=== PATIENT | male | born 1990 | race Caucasian/White ===

== ENCOUNTER 2018-05-13 07:48 | Emergency (ER) | payer OTHER ==
[~2018-05-13] VITALS: Ht 172.7 cm; Wt 86.2 kg
[~2018-05-13 07:48] MED LIST: 'PARAFON FORTE500 M1 PO; ACID CONTROLLER20 M1 PO; ADDERALL 10 MG10 MG PO; ADDERALL XR20 MG PO; AUGMENTIN 500500 MG PO; CLOTRIMAZOLE TR10 MG PO; GOOD SENSE IBU200 MG PO; MOTRIN800 MG PO; NAPROSYN500 MG PO; PAXIL10 MG/5 M1 PO; PREDNISONE10 MG PO; ZITHROMAX250 MG PO; Zofran4 MG PO
== END 2018-05-13 08:47 | disposition home or self-care (01) ==
LOC: ED 07:48
DX: T15.02XA Foreign body in cornea, left eye, initial encounter (principal); K21.9 Gastro-esophageal reflux disease without esophagitis; Z98.890 Other specified postprocedural states; Z79.899 Other long term (current) drug therapy; Z88.8 Allergy status to other drugs, medicaments and biological substances; X58.XXXA Exposure to other specified factors, initial encounter; Y93.89 Activity, other specified; Y92.89 Other specified places as the place of occurrence of the external cause; Y99.9 Unspecified external cause status

== ENCOUNTER 2020-05-29 01:09 | Emergency (ER) | payer BC ==
[~2020-05-29] VITALS: Ht 172.7 cm; Wt 90.7 kg
[2020-05-29 02:38] LABS: BASO # 0.1 10*3/uL (0.0-0.1); BASO % 0.5 % (0.0-1.0); EOS # 0.6 10*3/uL (0.0-0.4); EOS % 5.2 % (1.0-4.0); LYMPH # 1.1 10*3/uL (1.3-4.4); LYMPH % 9.1 % (27.0-41.0); MEAN CELL VOLUME 93.3 fl (80.0-94.0); MEAN CORPUSCULAR HGB 31.9 pg (27.0-31.0); MEAN CORPUSCULAR HGB CONC 34.2 g/dl (33.0-37.0); MEAN PLATELET VOLUME 9.8 fl (9.6-12.3); MONO # 0.5 10*3/uL (0.1-1.0); MONO % 4.5 % (3.0-9.0); NEUT # 9.5 10*3/uL (2.3-7.9); NEUT % 79.2 % (47.0-73.0); PLATELET COUNT AUTOMATED 135 10*3/uL (130-400); RED BLOOD COUNT 3.86 10*6/uL (4.50-5.90); RED CELL DISTRI WIDTH 12.6 % (0-14.5)
[2020-05-29 02:52] LABS: ALKALINE PHOSPHATASE 127 U/L (45-117); BUN 13 mg/dl (7-24); CHLORIDE 106 mmol/L (98-107); POTASSIUM 3.1 mmol/L (3.5-5.1); SGOT/AST 44 IU/L (3-35); SGPT/ALT 84 U/L (12-78); SODIUM 139 mmol/L (136-145); TOTAL PROTEIN 6.1 gm/dL (6.4-8.2)
[2020-05-29] MEDS ORDERED: PREDNISONE20 M1 PO (03:58)
== END 2020-05-29 04:41 | disposition home or self-care (01) ==
LOC: ED 01:09
PROVIDERS: Emergency Medicine
DX: M13.88 Other specified arthritis, other site (principal); Z79.899 Other long term (current) drug therapy

== ENCOUNTER 2021-12-05 01:43 | Emergency (ER) | payer BC ==
[~2021-12-05] VITALS: Ht 175.2 cm; Wt 90.7 kg
[~2021-12-05 01:43] MED LIST changes: +PREDNISONE20 M1 PO
== END 2021-12-05 05:09 | disposition home or self-care (01) ==
LOC: ED 01:43
DX: G43.909 Migraine, unspecified, not intractable, without status migrainosus (principal); K21.9 Gastro-esophageal reflux disease without esophagitis; Z88.8 Allergy status to other drugs, medicaments and biological substances; Z79.899 Other long term (current) drug therapy

== ENCOUNTER 2022-09-29 21:33 | Emergency (ER) | payer BC ==
[~2022-09-29] VITALS: Ht 175.2 cm; Wt 75.7 kg
[2022-09-29] MEDS ORDERED: PREDNISONE50 MG PO (22:01)
[2022-09-29] MEDS ORDERED: CYCLOBENZAPRINE10 MG PO (22:01)
== END 2022-09-29 23:30 | disposition home or self-care (01) ==
LOC: ED 21:33
DX: S61.012A Laceration without foreign body of left thumb without damage to nail, initial encounter (principal); W26.8XXA Contact with other sharp object(s), not elsewhere classified, initial encounter; Y93.89 Activity, other specified; Y92.89 Other specified places as the place of occurrence of the external cause; Y99.8 Other external cause status

== ENCOUNTER 2023-05-05 08:01 | Emergency (ER) | payer BC ==
[~2023-05-05] VITALS: Ht 175.2 cm; Wt 70.3 kg
[~2023-05-05 08:01] MED LIST changes: +CYCLOBENZAPRINE10 MG PO; +PREDNISONE50 MG PO
== END 2023-05-05 09:18 | disposition home or self-care (01) ==
LOC: ED 08:01
DX: M25.561 Pain in right knee (principal); M25.571 Pain in right ankle and joints of right foot; Z88.8 Allergy status to other drugs, medicaments and biological substances; Z79.899 Other long term (current) drug therapy; V27.99XA Unspecified rider of other motorcycle injured in collision with fixed or stationary object in traffic accident, initial encounter; Y93.89 Activity, other specified; Y92.488 Other paved roadways as the place of occurrence of the external cause; Y99.8 Other external cause status